=== PATIENT | female | born 1955 | race Caucasian/White ===

== ENCOUNTER 2023-02-07 10:59 | Outpatient (OUT) | payer MEDICARE, OTHER, SELFPAY ==
--- NOTE | 2023-02-07 11:01 | MM_ITS ---
Patient Name: ANTELMO STEVENSON MR#: [id number] : 1955 Exam Date: 02/07/2023 Ordering Doctor: DR Ab Omer . RADIOLOGY REPORT PROCEDURE: MM TOMOSYNTHESIS SCREENING BI COMPARISON: MG MAMM SCREEN 3D SHANON CAD, 02/03/2022. MG MAMM SCREEN 3D SHANON CAD, 02/01/2021. MG MAMM SCREEN SHANON W CAD, 01/30/2020. DIGITIZED_MAMMO, 06/15/2009. INDICATIONS: Screening Calculator Name NCI Breast Cancer Risk Assessment Tool 5 Year Breast Cancer Risk 3.30% Lifetime Breast Cancer Risk 9.50% Personal Breast Cancer No Personal Ovarian Cancer No Treatments None Family Cancers Sister with breast cancer at age 50; Aunt-maternal with breast cancer at age 50; Father with prostate cancer at age 70; Grandfather-paternal with prostate cancer at age 75. LOCATION: [facility] BREAST COMPOSITION: Heterogeneously dense,which may obscure small masses. FINDINGS: DIAGNOSTIC CATEGORY 2--BENIGN FINDING: RIGHT BREAST: No significant suspicious finding. Scattered benign-appearing calcifications are present. No significant change has occurred. LEFT BREAST: No significant suspicious finding. Scattered benign-appearing lymph nodes are present. No significant change has occurred. RECOMMENDATIONS: ROUTINE MAMMOGRAM AND CLINICAL EVALUATION IN 12 MONTHS. PLEASE NOTE: A NORMAL MAMMOGRAM DOES NOT EXCLUDE THE POSSIBILITY OF BREAST CANCER. A CLINICALLY SUSPICIOUS PALPABLE LUMP SHOULD BE BIOPSIED. Dictated by: Flaquito Melo M.D. on 02/08/2023 at 13:29 Approved by: Flaquito Melo M.D. on 02/08/2023 at 13:33
== END 2023-02-07 11:00 | disposition home or self-care (01) ==
LOC: MAMMO 10:59
PROVIDERS: PCP Internal Medicine; Visit Provider Surgery
DX: Z12.31 Encounter for screening mammogram for malignant neoplasm of breast (principal); Z80.3 Family history of malignant neoplasm of breast; Z80.42 Family history of malignant neoplasm of prostate
CPT/HCPCS: 77063; 77067

== ENCOUNTER 2024-02-09 10:55 | Outpatient (OUT) | payer MEDICARE, OTHER, SELFPAY ==
--- NOTE | 2024-02-09 10:57 | MM_ITS ---
Patient Name: ANTELMO STEVENSON MR#: [id number] : 1955 Exam Date: 02/09/2024 Ordering Doctor: DR HARSHAD HOYT RADIOLOGY REPORT PROCEDURE: MM TOMOSYNTHESIS SCREENING BI COMPARISON: MM TOMOSYNTHESIS SCREENING BI, 02/07/2023. MG MAMM SCREEN 3D SHANON CAD, 02/03/2022. MG MAMM SCREEN 3D SHANON CAD, 02/01/2021. MG MAMM SCREEN SHANON W CAD, 01/30/2020. INDICATIONS: Screening Calculator Name NCI Breast Cancer Risk Assessment Tool 5 Year Breast Cancer Risk 3.30% Lifetime Breast Cancer Risk 9.10% Personal Breast Cancer No Personal Ovarian Cancer No Treatments None Family Cancers Sister with breast cancer at age 50; Aunt-maternal with breast cancer at age 50; Father with prostate cancer at age 70; Grandfather-paternal with prostate cancer at age 75. LOCATION: [facility] [place] BREAST COMPOSITION: The breasts are heterogeneously dense,which may obscure small masses. FINDINGS: DIAGNOSTIC CATEGORY 2--BENIGN FINDING: RIGHT BREAST: No significant suspicious finding. Scattered benign-appearing calcifications are present. No significant change has occurred. LEFT BREAST: No significant suspicious finding. No significant change has occurred. RECOMMENDATIONS: ROUTINE MAMMOGRAM AND CLINICAL EVALUATION IN 12 MONTHS. PLEASE NOTE: A NORMAL MAMMOGRAM DOES NOT EXCLUDE THE POSSIBILITY OF BREAST CANCER. A CLINICALLY SUSPICIOUS PALPABLE LUMP SHOULD BE BIOPSIED. Dictated by: Flaquito Melo M.D. on 02/09/2024 at 14:09 Approved by: Flaquito Melo M.D. on 02/09/2024 at 14:12
--- OUTSIDE RECORDS SUMMARY | 2024-02-09 11:02 | XMS_ITS | CCD ---
Author Organization [facility] Care Team Providers Care Keno Clerk Name Role Phone DR JAS JANG Consulting Erin LR, DR HARSHAD Colindres Primary Care Unavailable LAINE, DR JAS Thakur Attending Erin JANG, DR JAS Thakur Admitting Erin ALVAREZ, DR KATH Garcia Consulting Unavailable HARSHAD LR Attending HARSHAD Stacy Referring HARSHAD Stacy Primary Care Unavailable Harshad Lr MD Primary Care Provider Allergies Allergy Classification Reported Allergen(s) Allergy Type Date of Onset Reaction(s) Facility (3 sources) Latex; Translations: [LATEX] Propensity to adverse reactions to drug (disorder) 0 [facility] Medications Current Medications Medication Drug Class(es) Dates Sig (Normalized) Sig (Original) lpbahlor-zish-CO-calcium &mins (THERAGRAN-M) 9 mg iron-400 mcg tablet (2 sources) ubdkbxut-aldn-UX -calciu m &mins (THERAGRAN-M) 9 mg iron-400 mcg tablet Take 1 tablet by mouth in the morning. Active Completed/Discontinued Medications Medication Drug Class(es) Dates Sig (Normalized) Sig (Original) fluticasone propionate 0.05 mg/actuat metered dose nasal spray (1 source) Corticosteroid Start: 07-21-2022 End: 12-28-2023 take 2 spray(s) nasal route in the morning fluticasone propionate (FLONASE) 50 mcg/actuation nasal spray Administer 2 sprays into each nostril in the morning. 11.1 mL 07/21/2022 12/28/2023 Discontinued (Therapy completed) Problems Active Problems Problem Classification Problem Date Documented Da te Episodic/Chronic Diabetes mellitus without complication (1 source) Hyperglycemia; Translations: [Hyperglycemia, unspecified] 01-04-2024 Episodic Disorders of lipid metabolism (2 sources) Pure hypercholesterole timmy, unspecified; Translations: [Hypercholesterol emia] Onset: 12-28-2023 12-28-2023 Chronic Other screening for suspected conditions (not mental disorders or infectious disease) (4 sources) Encounter for screening mammogram for malignant neoplasm of breast; Translations: [ENC SCR MAMMO MALIG NEOPLASM BREAST] Onset: 02-03-2022 Episodic Residual codes; unclassified (1 source) Family history of malignant neoplasm of breast; Translations: [FAMILY HX MALIG NEOPLASM OF BREAST] Onset: 02-05-2022 Episodic Residual codes; unclassified (1 source) Family history of malignant neoplasm of prostate; Translations: [FAMILY HX MALIG NEOPLASM PROSTATE] Onset: 02-05-2022 Episodic Unclassified (1 source) Annual Exam Onset: 12-28-2023 Past or Other Problems Problem Classification Problem Date Documented Da te Episodic/Chronic Mood disorders (2 sources) Mood disorders Onset: 12-28-2023 12-28-2023 Results Test Name Value Interpretation Reference Range Facil ity MG MAMM SCREEN 3D SHANON CADon 02-03-2022 MG MAMM SCREEN 3D SHANON CAD Patient: ANTELMO GONZALEZ Exam Date: 02/03/2022 : 1955 Gender:F Ordering : DR JAS JANG . Admission #: [id number] Family : DR HARSHAD LR Order #: [id number] CLICK HERE TO VIEW EXAM RADIOLOGY REPORT PROCEDURE: MAMMOGRAM SCREENING 3D BILATERAL CAD COMPARISON: MG MAMM SCREEN SHANON W CAD, 01/30/2020. MG MAMM SCREEN 3D SHANON CAD, 02/01/2021. INDICATIONS: Screening mammography Calculator Name NCI Breast Cancer Risk Assessment Tool 5 Year Breast Cancer Risk 3.30% Lifetime Breast Cancer Risk 9.90% Personal Breast Cancer No Personal Ovarian Cancer No Treatments None Family Cancers Sister with breast cancer at age 50; Aunt-maternal with breast cancer at age 50; Father with prostate cancer at age 70; Grandfather-paternal with prostate cancer at age 75. LOCATION: [facility] BREAST COMPOSITION: Heterogeneously dense,which may obscure small masses. FINDINGS: DIAGNOSTIC CATEGORY 2--BENIGN FINDING. NO CHANGE FROM COMPARISON. Scattered benign-appearing calcifications are present. Scattered benign-appearing lymph nodes are present. RIGHT BREAST: No significant suspicious finding. Stable area focal asymmetry upper outer quadrant, mid breast, stable. LEFT BREAST: No significant suspicious finding. RECOMMENDATIONS: ROUTINE MAMMOGRAM AND CLINICAL EVALUATION IN 12 MONTHS. PLEASE NOTE: A NORMAL MAMMOGRAM DOES NOT EXCLUDE THE POSSIBILITY OF BREAST CANCER. A CLINICALLY SUSPICIOUS PALPABLE LUMP SHOULD BE BIOPSIED. Dictated by: Kath Alvarez MD on 02/03/2022 at 14:19 Approved by: Kath Alvarez MD on 02/03/2022 at 14:21 Normal [facility] Vital Signs Date Time Vital Sign Value Performing Clinician Lianet tripathi 12-28-2023 13:16-0400 Body height 158.8 cm Harshad Lr MD Work Phone: [facility] 12-28-2023 13:16-0400 Body mass index (BMI) [Ratio] 26.64 kg/m2 Harshad Lr MD Work Phone: [facility] 12-28-2023 13:16-0400 Body weight 67.13 kg Harshad rL MD Work Phone: [facility] 12-28-2023 13:16-0400 Diastolic blood pressure 101 mm[Hg] Harshad Lr MD Work Phone: [facility] 12-28-2023 13:16-0400 Heart rate 72 /min Harshad Lr MD Work Phone: [facility] 12-28-2023 13:16-0400 Systolic blood pressure 192 mm[Hg] Harshad Lr MD Work Phone: [facility] Encounters Encounter Date Encounter Type Care Provider Facility Start: 01-04-2024 End: 01-04-2024 Orders Only Harshad Lr MD Work Phone: [facility] Comment on above: Elevated blood sugar (Primary Dx) Start: 12-28-2023 End: 12-28-2023 Patient encounter procedure [facility]ad Lr MD [facility] Comment on above: Routine general medi bandar examination at a health care facility (Primary Dx); Hypercholesteremia Start: 12-28-2023 End: 12-28-2023 Patient encounter status Harshad Lr MD Work Phone: [facility] [employer] Work Phone: Start: 12-28-2023 End: 12-28-2023 ambulatory [facility] Start: 12-28-2023 Encounter for genera l adult medical examination without abnormal findings [facility] Start: 02-03-2022 End: 02-04-[address] JAS JANG Facility:[facility] Procedures Date Procedure Procedure Detail Performing Clinician Start: 12-28-2023 Adult depression scr eening assessment Harshad Lr MD Work Phone: Start: 02-07-2023 Mammography Harshad Charles Work Phone: Plan of Treatment Date Care Activity Detail Author Start: 12-27-2024 Adult BMI Screening Adult BMI Screen ing [facility] Start: 12-27-2024 Depression Screening Depression Scre ening [facility] Start: 12-27-2024 Fall Risk Screening Fall Risk Screen ing [facility] Start: 12-27-2024 Medicare Annual Wellness Visit Medicare Annual Wellness Visit [facility] Start: 12-27-2024 Tobacco Screening Tobacco Screening [facility] Start: 02-08-2024 Screening for malign ant neoplasm of breast Mammogram [facility] Start: 11-19-2023 COVID-19 Vaccine ( season) COVID-19 Vaccine () [facility] Start: 11-19-2023 Influenza vaccination Influenza Vacc ine [facility] Start: 07-22-2023 Adult BMI Screening Adult BMI Screen ing [facility] Start: 07-22-2023 Depression Screening Depression Scre ening [facility] Start: 07-22-2023 Tobacco Screening Tobacco Screening [facility] Start: 2018 Fall Risk Screening Fall Risk Screen ing [facility] Start: 2003 Administration of varicella zoster vaccine Zoster (Shingles) Vaccine (1 of 2) [facility] Start: 01-10-1972 DTaP,Tdap and Td Vaccines (1 - Tdap) DTaP,Tdap and Td Vaccines (1 - Tdap) [facility] Start: 1971 Adult BMI Follow Up Plan Adult BMI Follow Up Plan Schedulize End: 12-27-2024 Comprehensive metabolic 2000 panel - Serum or Plasma Comprehensive metabolic panel Lab Routine Hypercholesteremia 1 Occurrences starting 12/28/2023 until 12/27/2024 Schedulize Comment on above: 1 Occurrences starti ng 12/28/2023 until 12/27/2024 End: 01-03-2025 Hemoglobin A1c/Hemoglobin.total in Blood Hemoglobin A1c Lab Routine Elevated blood sugar 1 Occurrences starting 01/04/2024 until 01/03/2025 [facility] Work Phone: Comment on above: 1 Occurrences starti ng 01/04/2024 until 01/03/2025 End: 12-27-2024 Lipid panel Lipid panel Lab Routine Hypercholesteremia 1 Occurrences starting 12/28/2023 until 12/27/2024 [facility] Work Phone: Comment on above: 1 Occurrences starti ng 12/28/2023 until 12/27/2024 Immunizations Immunization Date Immunization Notes Care Provider [facility] 07-14-2020 COVID-19, mRNA, LNP- S, PF, 100mcg/0.5mL Dose Harshad Lr MD Work Phone: [facility] 06-16-2020 COVID-19, mRNA, LNP- S, PF, 100mcg/0.5mL Dose Harshad Lr MD [facility] Payers Date Payer Category Payer Commercial Indemnity [employer] Member Subscriber Plan / Payer (Effective 2019-Present) Name: Antelmo Gonzalez Relation to Subscriber: Self Name: Antelmo Gonzalez Payer ID: Not on file Type: Not on file Address: [place] [id number] 2019 Unknown [employer] [id number] 2019-Present [phone] [address] [place] [address] [id number] 2017 Medicare [id number] 1959 Medicare [id number] 1959 Unknown [id number] 1955 Unknown [id number] 1955 Unknown [id number] Social History Date Type Detail Facility Start: 12-28-2023 Tobacco smoking stat [facility] Never smoked tobacco [facility] Start: 12-28-2023 Tobacco use and exposure Smokeless tobacco non-user [facility] Start: 12-28-2023 Alcoholic beverage intake Current drinker of alcohol (finding) [facility] Start: 04-30-2020 End: 12-28-2023 History of Social function [facility] Start: 04-30-2020 End: 12-28-2023 Tobacco use panel [facility] Adolescent depressio n screening assessment 0 [facility] Start: 01-13-2020 Alcohol Comment SOCIAL [facility] Start: 1955 [facility] Start: 10-20-2022 Gender identity Identifies as female gender (finding) [facility] Start: 10-20-2022 Sexual orientation Heterosexual (fin miguel) [facility] Start: 10-23-2014 Sex Female (finding) [facility] History of Present illness Narrative 12-28-2023 Harshad Lr MD - 12/28/2023 1:30 PM EDT Note Date & Type Note Facility 12-28-2023 History of Presen t illness Narrative Subjective Patient ID: Antelmo Gonzalez is a 68 y.o. female. Comes in for wellness. She is on no chronic medication. Gets her mammograms through surgery. She has no major concerns. The following portions of the patient's history were reviewed and updated as appropriate: allergies, current medications, past family history, past medical history, past social history, past surgical history, and problem list. Review of Systems Constitutional: Negative for activity change and unexpected weight change. HENT: Negative for trouble swallowing and voice change. Eyes: Negative for visual disturbance. Respiratory: Negative for cough and shortness of breath. Cardiovascular: Negative for chest pain and leg swelling. Gastrointestinal: Negative for abdominal pain and blood in stool. Sometimes feels some nausea in the morning Genitourinary: Negative for dysuria and hematuria. Musculoskeletal: Age-related arthritic aches and pains Neurological: Negative for dizziness, light-headedness and headaches. Objective Physical Exam Constitutional: Appearance: Normal appearance. Comments: Blood pressure measured above target HENT: Right Ear: Tympanic membrane normal. Left Ear: Tympanic membrane normal. Nose: No congestion. Mouth/Throat: Pharynx: Oropharynx is clear. Eyes: General: No scleral icterus. Pupils: Pupils are equal, round, and reactive to light. Neck: Vascular: No carotid bruit. Comments: No thyroid enlargement or neck mass Cardiovascular: Rate and Rhythm: Normal rate and regular rhythm. Heart sounds: No murmur heard. Pulmonary: Effort: Pulmonary effort is normal. Breath sounds: Normal breath sounds. Abdominal: General: There is no distension. Palpations: Abdomen is soft. Tenderness: There is no abdominal tenderness. Musculoskeletal: Right lower leg: No edema. Left lower leg: No edema. Neurological: General: No focal deficit present. Mental Status: She is alert. Assessment/Plan She will monitor her blood pressure serially at home and states that her blood pressure is high at the doctor's office and she has white coat syndrome. Up-to-date on colon cancer screening with prior negative colonoscopy. Labs ordered. Routine follow-up annually for wellness. Diagnoses and all orders for this visit: Routine general medical examination at a health care facility Hypercholesteremia - Lipid panel; Future - Comprehensive metabolic panel; Future documented in this encounter [facility] Evaluation note Note Date & Type Note Facility Evaluation note Diagnosis Routine general medical examination at a health care facility- Primary Hypercholesteremia Pure hypercholesterolemia [facility] Note Date & Type Note Facility Evaluation note Diagnosis Elevated blood sugar- Primary Other abnormal glucose [facility] this [facility] Instructions Note Date & Type Note Facility Instructions Not on filedocumented in this en counter [facility] Instructions Note Date & Type Note Facility Instructions Not on filedocumented in this en counter [facility] Summary Purpose Family History No Family History Records FoundNo Family History Records Found Advance Directives Documents on File Type Date Recorded Patient Sales Operations Associate Expl anatadrián Living Will 12/28/2023 1:16 PM AELK FIGUEROA NG WILL 05/22/2018 Additional Source Comments INFORMATION SOURCE (unrecogn ized section and content) DATE CREATED AUTHOR 02/06/2022 [facility] DATE CREATED AUTHOR AUTHOR'S ORGANIZ ATION 12/30/2023 [facility] Reason for Visit (unrecogniz ed section and content) Reason Comments Annual Exam Wellness, 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 This clinical summary was aggregated from multiple sources. Caution should be exercised in using it in the provision of clinical care. This summary normalizes information from multiple sources, and as a consequence, information in this document may materially change the coding, format and clinical context of patient data. In addition, data may be omitted in some cases. CLINICAL DECISIONS SHOULD BE BASED ON THE PRIMARY CLINICAL RECORDS. [facility] provides no warranty or guarantee of the accuracy or completeness of information in this document.
== END 2024-02-09 10:56 | disposition home or self-care (01) ==
LOC: MAMMO 10:56
PROVIDERS: PCP Internal Medicine; Visit Provider Internal Medicine
DX: Z12.31 Encounter for screening mammogram for malignant neoplasm of breast (principal); Z80.3 Family history of malignant neoplasm of breast; Z80.42 Family history of malignant neoplasm of prostate
CPT/HCPCS: 77063; 77067